=== PATIENT | male | born 1980 | race Caucasian/White ===

== ENCOUNTER 2021-10-11 09:49 | Inpatient (IN) ==
[2021-10-11 10:44] LABS: ABS Basophils 0.1 10^3/ul (0-0.2); ABS Eosinophils 0.1 10^3/ul (0-0.6); ABS Lymphocytes 1.3 10^3/ul (1.0-4.8); ABS Monocytes 0.6 10^3/ul (0-0.8); ABS Neutrophils 6.2 10^3/ul (1.5-7.7); Eosinophil % 1.1 %; Hematocrit 43 % (42-52); Hemoglobin 15.1 g/dL (14.0-18.0); Lymphocyte % 16.1 %; Mean Corpuscular HGB Conc 35 g/dL (31-36); Mean Corpuscular Hemoglobin 32 pg (27-31); Mean Corpuscular Volume 91 fL (80-94); Mean Platelet Volume 9.1 fL (7.4-10.4); Platelet Count 220 10^3/uL (150-450); Red Cell Distribution Width 13 % (10-15); White Blood Count 8.3 10^3/uL (3.5-10.8)
[2021-10-11 11:02] LABS: ALT 24 U/L (7-52); AST 18 U/L (13-39); Albumin 4.7 g/dL (3.2-5.2); Albumin/Globulin Ratio 1.9 (1-3); Alkaline Phosphatase 75 U/L (35-149); Anion Gap 7 mmol/L (2-11); Blood Urea Nitrogen 13 mg/dL (6-24); CO2 Carbon Dioxide 26 mmol/L (22-32); Calcium 9.6 mg/dL (8.6-10.3); Chloride 103 mmol/L (101-111); Globulin 2.5 g/dL (2-4); Glucose 113 mg/dL (70-100); Potassium 3.5 mmol/L (3.5-5.0); Sodium 136 mmol/L (135-145); Total Protein 7.2 g/dL (6.4-8.9); eGFR CKD-EPI 112.5 (>60)
[2021-10-11 11:14] LABS: Urine Appearance Cloudy; Urine Bilirubin Negative (Negative); Urine Blood Negative (Negative); Urine Color Amber; Urine Glucose Negative (Negative); Urine Ketones Trace (Negative); Urine Nitrite Negative (Negative); Urine Protein 1+(30 mg/dL) (Negative); Urine Specific Gravity 1.033 (1.002-1.030); Urine Urobilinogen Negative (Negative)
[2021-10-11 11:17] LABS: Urine Bacteria Absent (Absent); Urine Red Blood Cell 1+(3-5/hpf) (Absent); Urine White Blood Cell Trace(0-5/hpf) (Absent)
[2021-10-11 11:21] LABS: Acetaminophen < 15 mcg/mL; Alcohol, S < 13 mg/dL (<13); Salicylate < 2.50 mg/dL (<30)
[2021-10-11 11:22] LABS: Urine Benzodiazepine Screen None Detected (None Detect); Urine Cannabinoids Screen Presumptive Positive (None Detect); Urine Opiates Screen None Detected (None Detect)
[2021-10-11] MEDS ORDERED: Al Hydrox/Mg Hydrox/Simet LIQ 30 ML UDC PO PRN (13:12)
[2021-10-11 19:31] LABS: Valproic Acid < 13.0 mcg/mL (50-100)
[2021-10-12 08:21] LABS: HDL Cholesterol 47.8 mg/dL
[2021-10-12] MEDS: Nicotine Lozenge mini 4 MG LOZNG.MINI MT PRN (18:20)
[2021-10-12] MEDS: Nicotine GUM 4MG FRUIT FLAVOR PO PRN (21:13)
[2021-10-13] MEDS: Nicotine GUM 4MG FRUIT FLAVOR PO PRN (09:09)
[2021-10-14] MEDS: Nicotine GUM 4MG FRUIT FLAVOR PO PRN ×3 (08:19→20:16)
[2021-10-15] MEDS: Nicotine GUM 4MG FRUIT FLAVOR PO PRN ×3 (09:05→20:08)
[2021-10-15] MEDS: Nicotine Lozenge mini 4 MG LOZNG.MINI MT PRN (11:37)
[2021-10-16] MEDS: Nicotine GUM 4MG FRUIT FLAVOR PO PRN ×3 (08:25→20:42)
[2021-10-17] MEDS: Nicotine GUM 4MG FRUIT FLAVOR PO PRN (07:49)
[2021-10-18] MEDS: Nicotine GUM 4MG FRUIT FLAVOR PO PRN ×4 (08:14→20:42)
[2021-10-18] MEDS ORDERED: Paliperidone SUSTENNA 234 MG/1.5 ML IM ONE (15:00)
[2021-10-19] MEDS: Nicotine GUM 4MG FRUIT FLAVOR PO PRN ×3 (08:19→18:46)
[2021-10-20] MEDS: Nicotine GUM 4MG FRUIT FLAVOR PO PRN ×3 (08:18→19:45)
[2021-10-21 07:36] VITALS: BP 116/69
[2021-10-21] MEDS: Nicotine GUM 4MG FRUIT FLAVOR PO PRN (08:19)
[2021-10-21] MEDS ORDERED: Paliperidone SUSTENNA 156 MG/1 ML IM ONE (08:35)
== END 2021-10-21 11:00 | disposition home or self-care (01) | DRG 750 ==
LOC: ED 09:49 → EDHOLD 13:12 → BSU 16:30
PROVIDERS: ADMIT Student in an Organized Health Care Education/Training Program; ATTEND Student in an Organized Health Care Education/Training Program

== ENCOUNTER 2022-06-30 02:43 | Inpatient (IN) ==
[2022-06-30] MEDS ORDERED: Nicotine GUM 4MG FRUIT FLAVOR PO PRN (04:12)
[2022-06-30 06:13] LABS: ABS Basophils 0.1 10^3/ul (0-0.2); ABS Eosinophils 0.2 10^3/ul (0-0.6); ABS Monocytes 0.8 10^3/ul (0-0.8); ABS Neutrophils 7.7 10^3/ul (1.5-7.7); Eosinophil % 1.6 %; Hematocrit 47 % (42-52); Hemoglobin 16.2 g/dL (14.0-18.0); Lymphocyte % 18.7 %; Mean Corpuscular HGB Conc 34 g/dL (31-36); Mean Corpuscular Hemoglobin 32 pg (27-31); Mean Corpuscular Volume 91 fL (80-94); Mean Platelet Volume 9.2 fL (7.4-10.4); Nucleated Red Blood Cells % 0.1; Platelet Count 264 10^3/uL (150-450); Red Blood Count 5.16 10^6 /uL (4.18-5.48); Red Cell Distribution Width 13 % (10-15); White Blood Count 10.7 10^3/uL (3.5-10.8)
[2022-06-30 06:28] LABS: ALT 36 U/L (7-52); AST 24 U/L (13-39); Acetaminophen < 15 mcg/mL; Albumin 4.8 g/dL (3.2-5.2); Alcohol, S < 13 mg/dL (<13); Alkaline Phosphatase 93 U/L (35-149); Anion Gap 13 mmol/L (2-11); Blood Urea Nitrogen 16 mg/dL (6-24); CO2 Carbon Dioxide 22 mmol/L (22-32); Calcium 10.1 mg/dL (8.6-10.3); Chloride 102 mmol/L (101-111); Globulin 2.4 g/dL (2-4); Glucose 112 mg/dL (70-100); Salicylate < 2.50 mg/dL (<30); Sodium 137 mmol/L (135-145); Total Protein 7.2 g/dL (6.4-8.9); eGFR CKD-EPI 87.6 (>60)
[2022-06-30 06:43] LABS: TSH Ultra Thyroid Stim Horm 2.29 mcIU/mL (0.34-5.60)
[2022-06-30] MEDS ORDERED: Al Hydrox/Mg Hydrox/Simet LIQ 30 ML UDC PO PRN (08:29)
[2022-06-30 09:01] LABS: Urine Appearance Clear; Urine Bilirubin Negative (Negative); Urine Blood Negative (Negative); Urine Color Yellow; Urine Glucose Negative (Negative); Urine Ketones Negative (Negative); Urine Nitrite Negative (Negative); Urine Protein Negative (Negative); Urine Urobilinogen 0.2 (Negative) (Negative); Urine pH 5.5 (5.0-9.0)
[2022-06-30 09:11] LABS: Urine Benzodiazepine Screen None Detected (None Detect); Urine Cannabinoids Screen Presumptive Positive (None Detect); Urine Opiates Screen None Detected (None Detect)
[2022-06-30] MEDS: Nicotine PATCH 14 MG/24 HR PATCH TRANSDERM SCH (18:13)
[2022-06-30] MEDS: Nicotine GUM 4MG FRUIT FLAVOR PO PRN (18:20)
[2022-07-01 08:17] LABS: HDL Cholesterol 51.2 mg/dL
[2022-07-01] MEDS: Nicotine PATCH 14 MG/24 HR PATCH TRANSDERM SCH (10:00)
[2022-07-02] MEDS: Nicotine PATCH 14 MG/24 HR PATCH TRANSDERM SCH (09:46)
[2022-07-02] MEDS: Nicotine GUM 4MG FRUIT FLAVOR PO PRN (09:47)
[2022-07-03] MEDS: Nicotine GUM 4MG FRUIT FLAVOR PO PRN ×2 (09:39→20:26)
[2022-07-03] MEDS: Nicotine PATCH 14 MG/24 HR PATCH TRANSDERM SCH (09:39)
[2022-07-03] MEDS: Valproic Acid LIQ 250 MG/5 ML UDC PO SCH (20:07)
[2022-07-03] MEDS: risperiDONE-M 1 mg Oradis TAB PO SCH (20:11)
[2022-07-04] MEDS: risperiDONE-M 1 mg Oradis TAB PO SCH ×2 (07:12→20:39)
[2022-07-04] MEDS: Valproic Acid LIQ 250 MG/5 ML UDC PO SCH ×2 (07:13→20:39)
[2022-07-04] MEDS: Nicotine GUM 4MG FRUIT FLAVOR PO PRN ×3 (07:14→14:20)
[2022-07-04] MEDS: Nicotine PATCH 14 MG/24 HR PATCH TRANSDERM SCH (07:21)
[2022-07-05] MEDS: risperiDONE-M 1 mg Oradis TAB PO SCH ×2 (08:27→20:30)
[2022-07-05] MEDS: Valproic Acid LIQ 250 MG/5 ML UDC PO SCH ×2 (08:27→20:31)
[2022-07-05] MEDS: Nicotine GUM 4MG FRUIT FLAVOR PO PRN ×2 (08:29→16:06)
[2022-07-05] MEDS: Nicotine PATCH 14 MG/24 HR PATCH TRANSDERM SCH (08:29)
[2022-07-05] MEDS ORDERED: Paliperidone SUSTENNA 234 MG/1.5 ML IM ONE (13:52)
[2022-07-06] MEDS: Valproic Acid LIQ 250 MG/5 ML UDC PO SCH ×2 (08:18→19:56)
[2022-07-06] MEDS: risperiDONE-M 1 mg Oradis TAB PO SCH ×2 (08:18→19:56)
[2022-07-06] MEDS: Nicotine GUM 4MG FRUIT FLAVOR PO PRN ×2 (08:20→19:59)
[2022-07-06] MEDS: Nicotine PATCH 14 MG/24 HR PATCH TRANSDERM SCH (08:20)
[2022-07-07] MEDS: risperiDONE-M 1 mg Oradis TAB PO SCH ×2 (08:18→20:03)
[2022-07-07] MEDS: Nicotine GUM 4MG FRUIT FLAVOR PO PRN ×3 (08:19→20:07)
[2022-07-07] MEDS: Nicotine PATCH 14 MG/24 HR PATCH TRANSDERM SCH (08:55)
[2022-07-07] MEDS: Valproic Acid LIQ 250 MG/5 ML UDC PO SCH (20:03)
[2022-07-08] MEDS: risperiDONE-M 1 mg Oradis TAB PO SCH ×2 (07:55→21:03)
[2022-07-08] MEDS: Nicotine GUM 4MG FRUIT FLAVOR PO PRN ×3 (07:56→18:33)
[2022-07-08] MEDS: Nicotine PATCH 14 MG/24 HR PATCH TRANSDERM SCH (07:57)
[2022-07-08] MEDS ORDERED: Paliperidone SUSTENNA 156 MG/1 ML IM ONE (15:00)
[2022-07-08] MEDS: Valproic Acid LIQ 250 MG/5 ML UDC PO SCH (21:05)
[2022-07-09] MEDS: Nicotine GUM 4MG FRUIT FLAVOR PO PRN (09:30)
[2022-07-09] MEDS: risperiDONE-M 1 mg Oradis TAB PO SCH ×2 (09:30→20:38)
[2022-07-09] MEDS: Nicotine PATCH 14 MG/24 HR PATCH TRANSDERM SCH (10:24)
[2022-07-09] MEDS: Valproic Acid LIQ 250 MG/5 ML UDC PO SCH (20:39)
[2022-07-10] MEDS: risperiDONE-M 1 mg Oradis TAB PO SCH (07:25)
[2022-07-10] MEDS: Nicotine GUM 4MG FRUIT FLAVOR PO PRN ×2 (07:26→10:30)
[2022-07-10] MEDS: Nicotine PATCH 14 MG/24 HR PATCH TRANSDERM SCH (09:20)
[2022-07-10 10:10] VITALS: BP 111/85
== END 2022-07-10 12:49 | disposition home health service (06) | DRG 750 ==
LOC: ED 02:43 → EDHOLD 08:29 → BSU 09:53
PROVIDERS: ADMIT Student in an Organized Health Care Education/Training Program; ATTEND Student in an Organized Health Care Education/Training Program